=== PATIENT | male | born 1960 | race African-American/Black ===

== ENCOUNTER 2016-05-10 17:10 | Emergency (ER) | payer MEDICAID ==
[~2016-05-10] VITALS: Ht 182.9 cm; Wt 154.5 kg
[~2016-05-10 17:10] MED LIST: 1-ME1LIQ PO; ALBU8I INH; HYDR-2768 PO
[2016-05-10 17:12] VITALS: BP 189/98; PULSE 100; RESP 20; TEMP 98.2; O2SAT 96
--- NOTE | 2016-05-10 17:42 | PD ---
Physical Exam Time Seen by Provider: 17:40 Narrative 56 YEAR OLD MALE WITH HISTORY OF BACK PAIN PRESENTS TO ED FOR EVALUATION OF EXACERBATION OF LOW BACK PAIN OVER THE LAST THREE DAYS. NO PRECEDING INJURY. NO FEVER OR CHILLS. NO URINARY SYMPTOMS. NO IVDU. PAIN DOES NOT RADIATE ANYWHERE. STATES PAIN MAKES IT DIFFICULT TO WALK .. HISTORY HTN. Data Data Last Documented VS Vital Signs Date Time Temp Pulse Resp B/P Pulse Ox O2 Delivery O2 Flow Rate FiO2 05/10/16 17:12 98.2 100 20 189/98 96 Room Air [facility] Medical Record Reviewed: Yes Supervised Visit with URVASHI: No Narrative Course PT APPEARS WELL. MODERATELY HYPERTENSIVE. WILL BE BEDDED WHEN BED BECOMES AVAILABLE. Condition: Stable Marilee Silver May 10, 2016 17:42
[2016-05-10] MEDS ORDERED: IBUP800T23 PO (20:18)
[2016-05-10] MEDS ORDERED: BACL10TA PO (20:18)
--- NOTE | 2016-05-10 20:23 | PD ---
HPI Chief Complaint: Back/ Neck Pain or Injury Time Seen by Provider: 20:10 Travel History International Travel<30 days: No Contact w/Intl Traveler<30days: No Traveled to known affect area: No History of Present Illness HPI This is a 56-year-old male who reports a history of hypertension, chronic lower back pain. He presents for evaluation of lower back pain. He reports that he has had lower back pain for 6 years, worse over the past 3 days. The pain is an aching pain that is constant but worse with movement such as sitting up from lying down. He is not using any prescribed or [id number] medications to help with symptom relief. He denies any recent trauma. He denies any bowel or bladder incontinence, saddle anesthesia, IV drug abuse, radicular symptoms, abdominal pain, nausea or vomiting, chest pain, flank pain, shortness of breath. He reports at 6 months ago she had an MRI as an outpatient which showed "bulging disks" in his lower back. His primary care physician is Dr. Amin. He has no other complaints. [facility] Past Medical History Asthma: Yes Diabetes: Yes Diminished Hearing: No Hypertension: Yes Pneumonia: Yes Social History Alcohol Use: No Tobacco Use: No Substance Use: No (denies ) Allergies-Medications (Allergen,Severity, Reaction): Coded Allergies: No Known Allergies (Unverified , 05/10/16) Reported Meds & Prescriptions Reported Meds & Active Scripts Active Hctz (Hydrochlorothiazide) 25 Mg Tab 25 Mg PO DAILY Amlodipine Besylate 10 Mg Tab 1 Tab PO DAILY Ventolin Hfa (Albuterol Sulfate) 8 Gm Aero 2 Puff INH Q6 PRN * SHAKE WELL BEFORE USE * Review of Systems Except as stated in HPI: all other systems reviewed are Neg Physical Exam Narrative GENERAL: Well-developed well-nourished male in no acute distress SKIN: Warm and dry. No rash no bruising or soft tissue swelling HEAD: Atraumatic. Normocephalic. EYES: Pupils equal and round. No scleral icterus. No injection or drainage. ENT: No nasal bleeding or discharge. Mucous membranes pink and moist. NECK: Trachea midline. No JVD. CARDIOVASCULAR: Regular rate and rhythm. No murmur appreciated. RESPIRATORY: No accessory muscle use. Clear to auscultation. Breath sounds equal bilaterally. GASTROINTESTINAL: Abdomen soft, non-tender, nondistended. Hepatic and splenic margins not palpable. No palpable pulsatile masses. No flank or periumbilical ecchymosis MUSCULOSKELETAL: No obvious deformities. Full muscle strength in lower extremities. There is generalized tenderness to palpation to the lumbar paravertebral musculature. NEUROLOGICAL: Awake and alert. No obvious cranial nerve deficits. Motor grossly within normal limits. Normal speech. Data Data Last Documented VS Vital Signs Date Time Temp Pulse Resp B/P Pulse Ox O2 Delivery O2 Flow Rate FiO2 05/10/16 17:12 98.2 100 20 189/98 96 Room Air Orders Acetamin-Hydrocod 325-5 Mg ([place] 5-325 (05/10/16 20:30) Ketorolac Inj (Toradol Inj) (05/10/16 20:30) Orphenadrine Inj (Norflex Inj) (05/10/16 20:30) MDM Medical Decision Making Medical Screen Exam Complete: Yes Emergency Medical Condition: Yes Medical Record Reviewed: Yes Differential Diagnosis Degenerative disc disease, herniated nucleus pulposus, muscle strain, discitis, osteomyelitis, epidural abscess, dissecting AAA, renal colic, compression fracture, malignancy Narrative Course This is a 56-year-old male who has a 6 year history of chronic lower back pain who presents with worsening lower back pain over the past 3 days. He has no red flag symptoms to suggest spinal cord catastrophe. Intra-abdominal pathology such as pancreatitis, AAA were considered in the differential however the presentation is not consistent with these. His presentation is consistent with mechanical lower back pain. Plan is to treat him symptomatically with NSAIDs, muscle relaxants. It is recommended that he follow-up with his primary care physician in next few days as an outpatient. He would likely benefit from physical therapy. Discussed signs and symptoms on or returning to the emergency room. He is stable for discharge. Diagnosis Primary Impression: Lower back pain Qualified Code: M54.5 - Acute low back pain, unspecified back pain laterality , with sciatica presence unspecified Additional Instructions: Medication as needed. Do not drive or drink alcohol when taking baclofen. Take ibuprofen with meals. Follow-up in the next few days with primary care physician. Return for new or worsening symptoms. Med/Other Pt SpecificInfo: Prescription(s) given Scripts Baclofen 10 Mg Tab10 Mg PO Q8HR PRN (MUSCLE SPASM) 7 Days Ref 0 Prov:Miguelito Branch MD 05/10/16 Ibuprofen 800 Mg [id number] Mg PO Q6HR PRN (PAIN) #40 TAB Ref 0 Prov:Miguelito Branch MD 05/10/16 Disposition: 01 DISCHARGE HOME Condition: Stable [employer] May 10, 2016 20:23
[2016-05-10] MEDS ORDERED: KETOROLAC TROMETHAMINE 60 MG/2 ML (IM) VIAL IM ONE (20:30)
[2016-05-10] MEDS ORDERED: ORPHENADRINE INJ 60 MG/2 ML AMP IM ONE (20:30)
[2016-05-10] MEDS ORDERED: ACETAMINOPHEN/HYDROcodone 325 MG/5 MG TAB PO ONE (20:30)
[2016-05-10] MEDS ORDERED: LISI-519 PO (20:32)
== END 2016-05-10 21:36 | disposition home or self-care (01) ==
LOC: NEPB 17:10
DX: M54.5 Low back pain (principal); G89.29 Other chronic pain; I10 Essential (primary) hypertension; E11.9 Type 2 diabetes mellitus without complications; Z87.09 Personal history of other diseases of the respiratory system; Z87.01 Personal history of pneumonia (recurrent)
CPT/HCPCS: 96372; 99283; J1885; J2360